=== PATIENT | male | born 1955 | race Caucasian/White ===

== ENCOUNTER → 2024-09-19 | Outpatient (CLI) | payer MEDICARE ==
[2024-09-19 12:09] LABS: HEMOGLOBIN A1C 5.5 % (4.0-6.0)
[2024-09-19 12:11] LABS: ALBUMIN 4.4 g/dL (3.5-5.0); BILIRUBIN,TOTAL 0.9 mg/dL (0.2-1.0); POTASSIUM 5.2 mmol/L (3.5-5.1); TOTAL PROTEIN, SERUM 7.5 g/dL (6.0-8.3)
== END | disposition home or self-care (01) ==
LOC: LAB 11:32
PROVIDERS: ATTEND Student in an Organized Health Care Education/Training Program
DX: I11.9 Hypertensive heart disease without heart failure (principal); E78.5 Hyperlipidemia, unspecified; Z79.899 Other long term (current) drug therapy
CPT/HCPCS: 36415; 80053; 80061; 83036

== ENCOUNTER → 2024-10-03 | Outpatient (CLI) | payer MEDICARE ==
[~2024-10-03] MED LIST: IOHEXOL 350 MG/ML 100ML INFUS..BTL IV ONE; NITROGLYCERIN 4.1 GM SPRAY TL ONE
--- NOTE | 2024-10-03 14:27 | HMCIMG ---
CT CARDIAC ANGIO W/CONT. CCTA HISTORY: Abdominal aneurysm without rupture COMPARISON: None TECHNIQUE: Multiple sequential axial images of the chest were obtained along with the CT angiogram of the chest study. Patient was given 100 cc of Omnipaque through intravenous route. FINDINGS: There is no evidence of pulmonary nodule or parenchymal disease. No pleural effusion or pericardial effusion is seen. There is no evidence of pneumothorax. There are normal size mediastinal and hilar lymph nodes. Coronary arterial calcifications are seen. The heart is not enlarged. Degenerative changes of the thoracolumbar spine are present. IMPRESSION: 1. No evidence of pulmonary nodule or effusion is seen. Please see CT angiogram report of coronary arteries.
== END | disposition home or self-care (01) ==
LOC: RAH 11:12
PROVIDERS: ATTEND Student in an Organized Health Care Education/Training Program
DX: I71.40 Abdominal aortic aneurysm, without rupture, unspecified (principal); I25.10 Atherosclerotic heart disease of native coronary artery without angina pectoris; M47.815 Spondylosis without myelopathy or radiculopathy, thoracolumbar region
CPT/HCPCS: 75574; Q9967

== ENCOUNTER 2024-11-06 07:53 | Day surgery (SDC) | payer MEDICARE ==
[2024-11-04 12:26] VITALS: BP 126/67; PULSE 56; RESP 18; TEMP 97.6
[2024-11-04 12:31] LABS: BASOPHILS # (AUTO) 0.02 K/uL (0.00-0.20); BASOPHILS % (AUTO) 0.4 % (0.0-5.0); EOSINOPHILS # (AUTO) 0.06 K/uL (0.00-0.70); EOSINOPHILS % (AUTO) 1.2 % (0.0-8.0); HEMATOCRIT 43.2 % (42-54); IMMATURE GRANULOCYTE ABSOLUTE 0.02 K/uL (0-1); LYMPHOCYTES # (AUTO) 1.2 K/uL (1.0-4.8); LYMPHOCYTES % (AUTO) 23.7 % (21.0-51.0); MEAN CORPUSCULAR HEMOGLOBIN 31.9 pg (27.0-33.0); MEAN CORPUSCULAR HGB CONC 33.6 g/dL (32.0-36.0); MEAN CORPUSCULAR VOLUME 95.2 fL (79-99); MONOCYTES # (AUTO) 0.6 K/uL (0.1-1.0); NEUTROPHILS # (AUTO) 3.2 K/uL (1.8-7.7); NEUTROPHILS % (AUTO) 63.3 % (40.0-77.0); PLATELET COUNT (AUTO) 193 K/uL (130-400); RED BLOOD CELL COUNT(AUTO) 4.54 MIL/uL (4.50-6.20); RED CELL DISTRIBUTION WIDTH 12.5 % (11.0-15.5)
[2024-11-04 12:40] LABS: CREATININE 0.9 mg/dL (0.5-1.3); POTASSIUM 4.4 mmol/L (3.5-5.1)
[2024-11-04 12:41] LABS: INR <= 0.93 (0.85-1.15); PROTHROMBIN TIME 10.3 SEC (9.6-11.6)
[2024-11-04 12:51] LABS: B-TYPE NATRIURETIC PEPTIDE 12 pg/mL (0-100)
--- NOTE | 2024-11-04 13:25 | HMCIMG ---
CHEST 1VW HISTORY: Preop COMPARISON: None FINDINGS: A frontal projection of the chest was obtained. No acute pulmonary infiltrates is seen. The heart is normal in size. Degenerative changes are seen. No evidence of aortic calcification is seen. IMPRESSION: 1. No acute pulmonary infiltrate is seen.
--- NOTE | 2024-11-04 14:23 | EKG ---
[facility] Test Date: 2024-11-04 Test Time: 13:15:13 Pat Name: ZI FERREIRA Department: [facility] Room: [facility] Gender: M Security Director: [id number] : 1955 Requested By: JULIUS JARAMILLO Order Number: [id number] Reading MD: Annette Jaramillo Measurements Intervals [place] Rate: 49 P: 32 IA: 254 QRS: 31 QRSD: 104 T: 46 QT: 456 QTc: 411 Interpretive Statements Sinus bradycardia Prolonged IA interval No previous ECG available for comparison Electronically Signed On 11-07-2024 08:16:13 TRANSFORMER ASSEMBLY SUPERVISOR by Annette Jaramillo Please click the below link to view image of tracing.
[~2024-11-06] VITALS: Ht 170.2 cm; Wt 100.5 kg
[2024-11-06] VITALS (10 sets, daily range): BP systolic 109–159; BP diastolic 50–90; PULSE 45–56; RESP 12–17; TEMP 97.1–97.2
[~2024-11-06 07:53] MED LIST changes: +ASPI-1443 PO; +CLOP75TA32 PO; +HYDR25TA PO; -IOHEXOL 350 MG/ML 100ML INFUS..BTL IV ONE; +LISI40TA9 PO; -NITROGLYCERIN 4.1 GM SPRAY TL ONE; +NYST15PO13 TP; +SIMV-43 PO; +TAMS-1 PO; +TRAMADOL PO
[2024-11-06] MEDS: 0.9%NACL 1000ML 1,000 ML IV SCH (08:06)
[2024-11-06] MEDS ORDERED: HEParin-NS 1,000 UNIT/500 ML 1,000 ML IV ONE (13:42)
[2024-11-06] MEDS ORDERED: FENTanyl CITRate PF 50 MCG/1 ML 2ML VIAL ONE (13:42)
[2024-11-06] MEDS ORDERED: IOHEXOL 350 MG/ML 100ML INFUS..BTL IV ONE ×2 (13:42→15:40)
[2024-11-06] MEDS ORDERED: LIDOCAINE HCL 400MG/20ML VIAL ONE (13:42)
[2024-11-06] MEDS ORDERED: MIDAZOLAM HCL 1 MG/ML 2ML VIAL ONE (13:42)
[2024-11-06] MEDS ORDERED: HEParin 10,000 UNIT/10ML (1,000 UNIT/ML) VIAL ONE (13:42)
[2024-11-06] MEDS ORDERED: NITROGLYCERIN 50MG VIAL ONE (13:43)
[2024-11-06] MEDS ORDERED: VERAPAMIL HCL 2.5 MG/ML VIAL ONE (13:52)
[2024-11-06] MEDS ORDERED: ATROPINE 1MG SYG IVP ONE (13:59)
[2024-11-06] MEDS ORDERED: ASPIRIN 81MG CHEW TAB ONE (15:06)
[2024-11-06] MEDS ORDERED: cloPIDOgrel 75MG TAB ONE (15:06)
[2024-11-06] MEDS ORDERED: HEParin-NS 1,000 UNIT/500 ML 500 ML IV ONE (15:11)
[2024-11-06] MEDS ORDERED: GLUCAGON 1MG KIT 1 MG ML IM PRN (16:30)
[2024-11-06] MEDS ORDERED: 0.9%NACL 1000ML 1,000 ML IV SCH (16:30)
[2024-11-06] MEDS ORDERED: DEXTROSE 50%-WATER 50 ML DISP.SYRIN IV PRN (16:30)
--- NOTE | 2024-11-06 16:32 | PRN ---
PROCEDURE REPORT DATE OF PROCEDURE: Nov 06, 2024 ORNAMENTAL IRONWORKING SUPERVISOR: [Julius villa MD ] PROCEDURE PERFORMED: Conscious sedation Ultrasound guided right radial artery access Selective left coronary artery angiogram Selective right coronary artery angiogram Left heart catheterization IFR of the LAD and left main IVUS of the LAD and left main Status post successful IFR/IVUS guided PTCA/PCI of the ostial to mid LAD x2 overlapping stents (3.5 x 30 mm, 4 x 26 mm zoey Harmony drug-eluting stents, post dil to 5 mm proximally) TR band 13 ashkan over right radial artery INDICATION: Abnormal coronary CTA DESCRIPTION OF PROCEDURE: After informed consent was obtained, the patient was prepped and draped in the usual sterile fashion. A 6 [place] arterial sheath was inserted in the right radial artery using ultrasound guidance with first pass wall puncture. The arterial sheath was aspirated and flushed. A 6 [place] JL 3.5 was then advanced to the ascending aorta over an exchange length J-tip guidewire, was aspirated and flushed, and was used for selective coronary angiograms in multiple obliquities. A JR-4 was advanced in a similar fashion to the ascending aorta over the J-tipped guidewire and was used for selective right coronary angiograms in multiple oblique views with findings as outlined below. The JR-4 catheter advanced into the LV and pressures were obtained with a pull-back across the aortic valve. Following review of the angiographic images decision made to further interrogate patient's ostial to mid LAD stenosis with looked moderate in severity. We exchanged the diagnostic catheters for a six [place] XB three guide catheter which was exchanged over the wire and similar fashion. We [place] 9[address]11 units of IV heparin and following therapeutic ACT we advanced an IFR wire into the left main, flushing and normalizing and we advanced the IFR wire to the distal LAD under fluoroscopic guidance and proceeded with IFR assessment which revealed 0.83 x 2 with no drift. We then exchanged the IFR wire for a 014 [place] which was advanced in similar fashion into the distal LAD under fluoroscopic guidance. We then advanced an IVUS catheter over the wire into the mid LAD and performed measurements in the retrograde fashion and further interrogated in the ostial LAD and left main. We then proceeded with predilatation using a three by 25 mm compliant balloon which was inflated to 14 ASHKAN serially from the mid segment of the ostium of the LAD. We then deployed a 3.5 by 30 mm zoey Harmony drug-eluting stent within the proximal LAD to 14 ASHKAN. We post dilated this using a 4 x 27 mm NC balloon to 14 and 16 SAHKAN serially. We then deployed a four by 26 mm zoey Harmony drug-eluting stent from the ostial LAD to the proximal LAD in overlapping fashion to nominal pressures. Repeat IVUS imaging revealed significant stent under Marito so at this time we proceeded with postdilatation using a 4.5 x 15 mm noncompliant balloon in the mid LAD to 14 ASHKAN. We then used a 5 x 15 mm noncompliant balloon which was inflated to nominal pressures within the prox and ostial LAD. Final angiographic imaging reveals yarsani of LEANN three flow with no dissections or perforations. All wires and catheters removed from the body and a TR band was placed over right radial artery. Patient tolerated procedure with no postprocedural complication was transferred to lab rep holding in stable condition FLUOROSCOPY TIME: 30.5 min LEFT HEART HEMODYNAMICS: LVEDP 14 mm Hg and no gradient Ao CORONARY ANGIOGRAM: LEFT MAIN: Patent and 0% stenosis. Gives rise to LCx and LAD. LEFT ANTERIOR DESCENDING: Large vessel giving rise to two Diagonal branches. Ostial 70% stenosis followed by 80% proximal stenosis with LEANN two flow (IFR 0.83 x 2 with no drift). Diag onals are widely patent LEFT CIRCUMFLEX: Large and gives rise to two OM branches. 0% stenosis. RIGHT CORONARY ARTERY: Large, dominant vessel giving rise to PDA and PL branches. 40-50% distal stenosis. PDA and PLB are patent HEMOSTASIS: TR band 12 ashkan over right radial artery INTERVENTIONS: Status post successful IFR/IVUS guided PTCA/PCI of the ostial to mid LAD x2 overlapping stents (3.5 x 30 mm, 4 x 26 mm zoey Harmony drug-eluting stents, post dil to 5 mm proximally) COMPLICATIONS: None FINDINGS: Normal coronary anatomy and severe obstructive ostial to mid LAD stenosis status post successful revascularization x2 ESTIMATED BLOOD LOSS: 5 cc RECOMMENDATIONS/INSTRUCTIONS: Aggressive risk factor modification. Patient require six months of adapt (aspirin 81 mg daily/Plavix 75 mg q.day) in addition to statin therapy We will defer beta-jb in the setting of severe bradycardia in the 40s Follow up in clinic 1-2 weeks post discharge CONTRAST DELIVERED TO PATIENT (mL): 275cc JULIUS Carrera MD, MD Nov 06, 2024 16:32
--- NOTE | 2024-11-06 17:30 | NUR ---
URINARY: VOIDED 425CC CLEAR YELLOW COLOR URINE PER URINAL WITHOUT DIFFICULTY
--- NOTE | 2024-11-06 19:12 | NUR ---
VASC BAND: VASC BAND REMOVED WITH NO ACTIVE BLEEDING PRESENT. CLEANSED WITH CHLOR PREP FOLLOWED BY APPLYING STERILE 2X2 GAUZE THEN 2X2 TEGADERM. NO REDNESS/SWELLING NOTED TO SURROUNDING AREA RT WRIST.
[2024-11-07] MEDS ORDERED: ASPIRIN 81MG CHEW TAB PO SCH (09:00)
[2024-11-07] MEDS ORDERED: cloPIDOgrel 75MG TAB PO SCH (09:00)
== END 2024-11-06 19:20 | disposition home or self-care (01) ==
LOC: DAH 07:53
PROVIDERS: ATTEND Student in an Organized Health Care Education/Training Program
DX: I65.23 Occlusion and stenosis of bilateral carotid arteries (principal); I25.118 Atherosclerotic heart disease of native coronary artery with other forms of angina pectoris; R93.1 Abnormal findings on diagnostic imaging of heart and coronary circulation; E78.5 Hyperlipidemia, unspecified; I11.9 Hypertensive heart disease without heart failure; I71.40 Abdominal aortic aneurysm, without rupture, unspecified; R94.31 Abnormal electrocardiogram [ECG] [EKG]; I73.9 Peripheral vascular disease, unspecified; I25.83 Coronary atherosclerosis due to lipid rich plaque; Z79.82 Long term (current) use of aspirin; Z79.899 Other long term (current) drug therapy
CPT/HCPCS: 80048; 83880; 85025; 85610; 85730; 36415 ×2; 71045; 93005; 92978; 92979; 93458; 93571; 93572; 85347 ×2; 82948 ×2; C9600; C1769 ×4; C1725 ×4; C1874 ×2; C1894; A4649; C1887; C1753; Q9965 ×2; J3010; J3490 ×3; J1644 ×3; J2250; Q9967 ×2; A4215; A4222; A6260; A4221; A4663; A4216; A6206; A4606; A4223 ×3; 96360; 96361; 99156; 99157; J0461